=== PATIENT | female | born 1995 | race African-American/Black ===

== ENCOUNTER 2023-08-14 10:40 | Outpatient (REF) | payer OTHER, SELFPAY ==
--- NOTE | ~2023-08-14 | XR_ITS ---
EXAMINATION: XR KNEE, LEFT CLINICAL INFORMATION: Pain COMPARISON: None available. TECHNIQUE: Four views of the left knee. FINDINGS: No fracture or joint effusion. Alignment is anatomic. Joint spaces are maintained. No abnormal soft tissue calcification. XR/XR knee LT 3V IMPRESSION: No acute bony pathology.
== END 2023-08-14 10:41 | disposition home or self-care (01) ==
LOC: HO.HOSX 10:40
PROVIDERS: PCP Internal Medicine; Visit Provider Physical Medicine & Rehabilitation
DX: M22.2X2 Patellofemoral disorders, left knee (principal); G24.9 Dystonia, unspecified
CPT/HCPCS: 73562; 99202

== ENCOUNTER 2023-08-14 10:40 | Outpatient (AMB) | payer OTHER, SELFPAY ==
--- NOTE | 2023-08-14 10:47 | A.OFFVIS_ITS ---
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 States pain started about 1 year ago and is worsen. Patient was offered Botox injection for her neck by her neurologist and will started next month. Patient recently diagnosed with dystonia disease and possible [place] disease. Allergies No Known Allergies Allergy (Verified 08/14/23 10:55) Medication List - Last Reconciled 08/14/23 by Xiomara Morales MD carbidopa-levodopa 25-100 mg 1 tab PO QID HPI HPI Comments History of Present Illness Details Had gone to [facility]rology with diagnosis of possible [place] and cervical dystonia. MRI ordered, reviewed by them. Botox injections planned for August 25. Had seen Dr. Estrada, told did not need surgery. Since that main issue is being taken cared of at [facility], she mentions other issue of left knee pain. This is a separate issue. Been since HS, had PT long time ago without relief, progressing. No sports or gymnastics. Reports popping in the past. Nowadays still has clicking. Denies swelling. Pain could be severed, pointing to patella. Works as law firm receptionist, sitting a lot. Treatment done so far: NSAIDs prn therapy years ago tried brace before [facility] Medical History (Updated 08/14/23 @ 11:24 by Xiomara Morales MD) Dystonia Patellofemoral pain syndrome Social History (Updated 08/14/23 @ 10:56 by Shanda Read [facility]) Current occupational status: employed Current occupation: civil structural engineer/ rt hand Review of Systems Const All systems reviewed & are unremarkable except as noted in HPI and below Physical Exam Vital Signs: BMI result Body Mass Index 22.5 Constitutional: Patient appears to be in no acute distress, well nourished and well developed. MSK: Bilateral hip, knee and ankle ROM WNL. Crepitus noted when moving left patella. Tender along left patellar tendon. No warmth or redness or swelling. No increased effusion. No joint line tenderness. Patellar grind test is positive left. Anterior drawer test is negative. Anila test is negative. Posterior drawer test is negative. Valgus and varus stress tests are negative. Darlin test is negative. Strength is 5/5 in all muscle groups tested. No increased tone noted. Neurological: Joshi?s negative bilaterally. Babinski was down going bilaterally. Clonus was negative. Gait is non-antalgic without loss of balance. Dystonic movements upper body. Results Reviewed Results Reviewed: 06/03/23 thoracic [id number] unremarkable Right shoulder x-ray reported unremarkable Cervical spine x-ray reported preserved disc spaces, foraminal stenosis noted. I reviewed records from the following: PCP Assessment & Plan Assessment & Plan (1) Patellofemoral pain syndrome: Code(s): M22.2X9 - Patellofemoral disorders, unspecified knee Qualifiers: Laterality: left Qualified Code(s): M22.2X2 - Patellofemoral disorders, left knee (2) Dystonia: Code(s): G24.9 - Dystonia, unspecified Plan: Diagnosed dystonia by a neurologist at [facility]. Treatment by them. Plan Left knee pain most likely patellofemoral with possible left patellar tendinitis. Will put her on a patellar brace. We talked about physical therapy especially for strengthening of vastus muscles to hold patella in place. Referral to PT placed. Will do x-ray to today to rule out or shows abnormality. Assessment and plan discussed with patient, and patient was agreeable. All questions were answered thoroughly. Follow-up after PT in September. Xiomara Morales MD, LEONORA Board Certified, [place] [employer] and Rehabilitation (ABPMR) Board Certified, [place] [employer] Electro[employer] (ABEM) Orders: Orders XR knee LT 3V Today M22.2X9 - Patellofemoral disorders, unspecified knee, M25.50 - Pain in unspecified joint PT Evaluation and Treatment Today M22.2X9 - Patellofemoral disorders, unspecified knee Coding Level of Care Code New Pt Level 4 (83682) Diagnoses Patellofemoral pain syndrome of left knee M22.2X2 Laterality: left Dystonia G24.9
[2023-08-14 10:51] VITALS: BMI 22.5
== END 2023-08-14 11:17 | disposition home or self-care (01) ==
PROVIDERS: PCP Internal Medicine; Visit Provider Physical Medicine & Rehabilitation
DX: M22.2X2 Patellofemoral disorders, left knee (principal); G24.9 Dystonia, unspecified
CPT/HCPCS: 99204